=== PATIENT | female | born 1965 | race Caucasian/White ===

== ENCOUNTER 2016-12-16 10:21 | Inpatient (IN) | payer BC ==
[2016-12-16] VITALS (20 sets, daily range): BP systolic 104–147; BP diastolic 52–75; PULSE 70–101; RESP 6–18; Ht 160 cm; Wt 61.4 kg
[~2016-12-16] VITALS: Ht 160 cm; Wt 61.4 kg
[2016-12-16] MEDS ORDERED: BUPR300T36 PO (11:14)
[2016-12-16] MEDS ORDERED: BUPIVACAINE 0.5% ON-Q-PUMP 0 ML ONE (13:53)
[2016-12-16] MEDS ORDERED: GENTAMICIN 80 MG INJ ONE (13:56)
[2016-12-16] MEDS ORDERED: POLYMYXIN/BACITRACIN 1L IRRIG ONE (13:56)
[2016-12-16] MEDS ORDERED: BUPIVACAINE 0.5%/EPI (SDV) 10 ML INJ ONE (13:56)
[2016-12-16] MEDS ORDERED: EPINEPHrine 1 MG/ML 30 ML INJ ONE (13:57)
[2016-12-16] MEDS ORDERED: PROPOFOL 20 ML ONE (14:05)
[2016-12-16] MEDS ORDERED: MIDAZOLAM 1 MG/ML 2 ML INJ ONE (14:05)
[2016-12-16] MEDS ORDERED: LIDOCAINE 1% (MDV) 20 ML INJ ONE (14:05)
[2016-12-16] MEDS ORDERED: ROCURONIUM 50 MG INJ ONE (14:05)
[2016-12-16] MEDS: D5W-0.45 NACL + KCL 20 MEQ 1,000 ML IV SCH ×2 (15:39→23:39)
[2016-12-16] MEDS ORDERED: ACETAMINOPHEN 1000MG/100ML IV 100 ML IVPB PRN (16:00)
[2016-12-16] MEDS ORDERED: ONDANSETRON 4 MG INJ IV PRN ×2 (16:00→16:30)
--- NOTE | 2016-12-16 16:13 | HPN ---
Date/Time of Note Date/Time of Note DATE: 12/16/16 TIME: 16:13 Interval H&P Admission Note Pt. seen H&P reviewed: No system changes BOOM GRAHAM MD Dec 16, 2016 16:13
--- NOTE | 2016-12-16 16:27 | OPR ---
Date/Time of Note Date/Time of Note DATE: 12/16/16 TIME: 16:21 Operative Report Free Text/Dictation Plastic Surgery Operative Report Preoperative diagnosis: left breast CA Postoperative diagnosis: same Procedure: bilateral direct to implant breast reconstruction with alloderm Surgeon: mitch Chowdhury.:n/a Anesthesia:gen EBL:10cc IV fluids:per flow sheet Findings:n/a Complications:none Dispo:home Indications for procedure: 51 yo patient presents for bilateral direct to implant breast reconstruction. The risks, benefits, and alternatives of performing this procedure were discussed with the patient including the risks of bleeding, infection, wound healing problems, pain and tightness, need for removal. We discussed that if radiation is involved, it may alter the outcome. The risk of asymmetry and need for revision surgery were also discussed. The patient states that she understands these risks and would like to proceed with the procedure. All questions were answered, no guarantees were given with regards the outcome of this procedure. Description of procedure: The patient was brought to the operating room at [facility] where general anesthesia was induced, and the patient was prepped and draped in the usual sterile fashion. The mastectomy was performed by Dr. Prather and will be dictated separately. At the completion of that portion of the case, I scrubbed into the case, and irrigated the breasts with extensive antibiotic irrigation to remove all loose fat particles. Next, meticulous hemostasis was achieved with the bipolar cautery. An additional round of irrigation and hemostasis was carried out. Next, the right breast was inspected, and a piece of AlloDerm contour large was opened, rinsed in normal saline to remove the preservative, and was anchored in place medially, inferiorly, and laterally to re-create the lower border of the breast with 2-0 Vicryl suture. Next, the cautery was used to enter the lateral border of the subpectoral space, and then the pectoralis muscle was elevated from lateral to medial on its inferior surface, and was released inferiorly. The base width was then measured and was found to be approximately 13cm. Therefore, a 460cc sizer was opened, rinsed in antibiotic irrigation, and this was inserted into the right breast. This was too small and so a 560cc sizer was inserted, which gave the desired appearance. Next, the left breast was inspected, and a piece of AlloDerm contour large was opened, rinsed in normal saline to remove the preservative, and was anchored in place medially, inferiorly, and laterally to re-create the lower border of the breast with 2-0 Vicryl suture. Next, the cautery was used to enter the lateral border of the subpectoral space, and then the pectoralis muscle was elevated from lateral to medial on its inferior surface, and was released inferiorly. The base width was then measured and was found to be approximately 13cm. The sizer was inserted into the left breast, and this had the desired appearance. The breasts were inspected, and were found to be symmetric. Therefore, the sizer was removed, the breasts were irrigated with antibiotic irrigation, a final round of hemostasis was carried out, gloves were changed, and then an Allergan SCF-560cc SN [id number] implant was opened, rinsed in antibiotic irrigation, and was inserted into the left breast with minimal touch technique. The same size and style implant SN [id number] was opened, rinsed in antibiotic irrigation, and was inserted into the right breast with minimal touch technique. Finally, the pectoralis muscles were anchored to the AlloDerm with 2 -0 vicryl, and then an additional round of hemostasis and irrigation was carried out. 60 cc of a dilute exparel solution was injected around the breasts , and 2 x 15 Juan Carlos drains were inserted into each breast through stab incisions in the axilla and were secured in place with 2-0 nylon suture. A medial dog ear was de-epithelized on the right medial breast, and was plicated with 3-0 vicryl suture. The breasts were then closed with 3-0 Vicryl suture and 4-0 Monocryl suture and was dressed with Dermabond, Tegaderm, and an ABD. the patient tolerated this procedure well, there were no complications, she will remain tonight. BOOM GRAHAM MD Dec 16, 2016 16:27
[2016-12-16] MEDS ORDERED: BUPIVACAINE LIPOSOME/PF 266 MG/20 ML VIAL INFIL SCH (16:30)
[2016-12-16] MEDS ORDERED: HYDROCODONE/APAP (10/325) TAB PO PRN (16:30)
[2016-12-16] MEDS ORDERED: ACETAMINOPHEN 325 MG TAB PO PRN (16:30)
[2016-12-16] MEDS ORDERED: HYDROmorphONE 1 MG/ML SYG IV PRN (16:30)
[2016-12-16] MEDS ORDERED: POLYMYXIN/BACITRACIN 1L IRRIG IRR ONE (17:27)
[2016-12-16] MEDS ORDERED: CEFAZOLIN 1 GM INJ ONE (18:18)
[2016-12-16] MEDS ORDERED: DEXAMETHASONE 4 MG/ML 1 ML INJ ONE (18:48)
[2016-12-16] MEDS ORDERED: FAMOTIDINE 20 MG INJ ONE (18:48)
[2016-12-16] MEDS ORDERED: ONDANSETRON 4 MG INJ ONE (18:48)
[2016-12-16] MEDS ORDERED: SUGAMMADEX SODIUM 200 MG/2 ML VIAL IV ONE (20:13)
[2016-12-16] MEDS ORDERED: FENTAnyl 50 MCG/ML VIAL ONE (20:22)
[2016-12-16] MEDS ORDERED: DIPHENHYDRAMINE 50 MG INJ IV PRN (20:30)
[2016-12-16] MEDS ORDERED: LORAZEPAM 2 MG INJ IV PRN (20:30)
[2016-12-16] MEDS ORDERED: METOCLOPRAMIDE 10 MG INJ IV PRN (20:30)
[2016-12-16] MEDS ORDERED: MEPERIDINE 25 MG INJ IV PRN (20:30)
[2016-12-16] MEDS ORDERED: PROCHLORPERAZINE 10 MG INJ IV PRN (20:30)
[2016-12-16] MEDS ORDERED: HYDROmorphONE (0.2 MG/ML) 10ML SYG IV PRN (20:30)
[2016-12-16] MEDS: HYDROmorphONE (0.2 MG/ML) 10ML SYG IV PRN ×3 (20:52→21:24)
[2016-12-16] MEDS: CEFOTAXIME 1 GM/50 ML (PMX) 50 ML IVPB SCH (21:20)
[2016-12-16] MEDS: LACTATED RINGER'S 1,000 ML IV SCH (22:00)
[2016-12-16] MEDS: morphine 2 MG INJ IV PRN (22:42)
[2016-12-17] VITALS (8 sets, daily range): BP systolic 103–114; BP diastolic 54–59; PULSE 72–84; RESP 16–19
[2016-12-17] MEDS: CEFOTAXIME 1 GM/50 ML (PMX) 50 ML IVPB SCH ×2 (00:30→06:53)
[2016-12-17] MEDS: morphine 2 MG INJ IV PRN ×5 (00:35→08:36)
[2016-12-17] MEDS: LACTATED RINGER'S 1,000 ML IV SCH ×2 (02:14→04:23)
[2016-12-17] MEDS: D5W-0.45 NACL + KCL 20 MEQ 1,000 ML IV SCH (07:39)
--- NOTE | 2016-12-17 08:32 | OPR ---
DATE OF OPERATION: 12/16/2016 PREOPERATIVE DIAGNOSES: 1. Multicentric invasive cancer, left breast. 2. Need for left modified radical mastectomy and right prophylactic mastectomy. POSTOPERATIVE DIAGNOSES: 1. Multicentric invasive cancer, left breast. 2. Need for left modified radical mastectomy and right prophylactic mastectomy. OPERATION PERFORMED: 1. Left modified radical mastectomy with immediate reconstruction. 2. Right mastectomy with immediate reconstruction. ANESTHESIA: General. ANESTHESIOLOGIST: Panfilo Alonso MD SURGEON: Jon Prather MD PLASTIC SURGEON: Grabiel Chaudhry MD ASSISTANTS: 1. Ab Agosto MD 2. Jayme Escobar MD INDICATIONS FOR PROCEDURE: The patient is an unfortunate 51-year- old female who underwent screening mammography and was found to have suspicious spiculated lesion in the left breast and in a separate region a large span of calcifications which were also biopsied and were positive for ductal carcinoma. The spiculated lesion was biopsied and was positive for invasive cancer. Due to the fact that she had multicentric disease, the recommendation was for left modified radical mastectomy. The patient also requested right prophylactic mastectomy. She was seen preoperatively by plastic surgeon, Dr. Grabiel Chaudhry and she consented for the left modified radical mastectomy with immediate reconstruction and right mastectomy with immediate reconstruction. DESCRIPTION OF PROCEDURE: The patient brought to the operating theater and placed under general anesthesia. The breasts and axillary regions were prepped and draped bilaterally. The attention was first directed to the left side. Dr. Chaudhry had previously marked the elliptical incision, including the nipple- areolar complex. Dr. Prather carried out the incision with a 15 blade scalpel. Subcutaneous tissue was dissected with cautery. The skin edges were then elevated with [place] clamps and skin flaps were created using cautery, first superiorly to the clavicle then medially to the sternal border, inferiorly to the inframammary fold and laterally until the latissimus dorsi muscle was identified throughout its course. Mastectomy then took place using cautery from medial to lateral at the border of the pectoralis major muscle. The pectoralis minor muscle was identified. The clavipectoral fascia was incised with blunt dissection along the chest wall. The long thoracic nerve was identified and kept out of harm's way. More superiorly, the axillary vein and thoracodorsal neurovascular bundle was identified and kept out of harm's way. Level 1 lymph nodes were then meticulously dissected with the LigaSure device. Final connective tissue attachments to the latissimus dorsi muscle were transected with cautery. Specimen was oriented and sent for permanent pathologic analysis. Some additional enlarged level 1 to level 2 nodes were identified. They were resected separately and sent for pathologic analysis. The wound was irrigated. Minimal bleeding was controlled with cautery and the reconstruction portion of this of the left-sided operation was performed by Dr. Chaudhry and he will dictate that separately. Attention was then directed to the right-side. Again, Dr. Chaudhry had previously demarcated an elliptical incision, including the nipple-areolar complex, with marking pen. The incision was carried out with 15-blade scalpel. Subcutaneous tissue was dissected with cautery. The skin edges were elevated with [place] clamps and using cautery, skin flaps were developed first superiorly to the clavicle, then medially to the sternal border, inferiorly to the inframammary fold, and laterally until the latissimus dorsi muscle was identified throughout its course. Mastectomy then took place from [id number] using cautery. At the border of the pectoralis major muscle, the pectoralis minor muscle was identified. The tail of the breast was then resected with cautery. The specimen was removed, oriented, and sent for permanent pathologic analysis. At this point, Dr. Chaudhry entered the room and took over control of the operation, proceeded with immediate reconstruction of both the left and right sides and he will dictate that port portion separately. The estimated blood loss for Dr. Prather' portion of the operation was 150 mL. There were no complications. Dictated By: Jon Prather MD /fredrick/evelia /Document#: [id number] ANNY
[2016-12-17] MEDS ORDERED: HYDROCODONE/APAP (10/325) TAB PO PRN (10:00)
--- NOTE | 2016-12-17 10:51 | PN ---
Date/Time of Note Date/Time of Note DATE: 12/17/16 TIME: 10:49 Assessment/Plan Lines/Catheters IV Catheter Type (from [facility]): Saline Lock Assessment/Plan Assessment/Plan doing well discharge to home today nitropaste x1 to skin flaps today only follow up next week Subjective 24 Hr Interval Summary no acute events overnight Exam/Review of Systems Vital Signs Vitals Vital Signs Date Time Temp Pulse Resp B/P Pulse Ox O2 Delivery O2 Flow Rate FiO2 12/17/16 07:00 98.6 83 18 112/59 97 12/17/16 04:00 Room Air Intake and Output 12/16/16 12/16/16 12/17/16 15:00 23:00 07:00 Intake Total 1250 ml 1210 ml Output Total 225 ml 1175 ml Balance 1025 ml 35 ml Exam Free Text/Dictation GEneral: NAD breasts: no hematoma, flaps soft. drains intact. mild bruising on skin flaps BOOM GRAHAM MD Dec 17, 2016 10:51
--- NOTE | 2016-12-17 10:52 | DS ---
Date/Time of Note Date/Time of Note DATE: 12/17/16 TIME: 10:51 Discharge Summary Admission/Discharge Info Admit Date/Time Dec 16, 2016 at 10:21 Discharge Date/Time 12/07/16, 1100 Discharge Diagnosis left breast cancer Patient Condition: Good Hospital Course uncomplicated Home Meds Reported Medications Bupropion Hcl* (Bupropion XL*) 300 Mg Tab.sr.24h, 300 MG PO DAILY, TAB.SA 12/16/16 Primary Care Provider Not On Staff Doctor BOOM GRAHAM MD Dec 17, 2016 10:52
--- NOTE | 2016-12-17 10:54 | CONS ---
Date/Time of Note Date/Time of Note DATE: 12/17/16 TIME: 10:52 Assessment/Plan Assessment/Plan Chief Complaint/Hosp Course 1) breast cancer - s/p mastectomy Problems: Consultation Date/Type/Reason Admit Date/Time Dec 16, 2016 at 10:21 Date of Consultation: Dec 17, 2016 Reason for Consultation Medical Management postoperative Hx of Present Illness Patient with breast cancer is here for mastectomy. Patient tolerated the procedure fine and now is stable for discharge after the procedure. Constitutional: no complaints Eyes: no complaints ENT: no complaints Respiratory: no complaints Cardiovascular: no complaints Gastrointestinal: no complaints Genitourinary: no complaints Musculoskeletal: no complaints Skin: no complaints Neurologic: no complaints Social History Smoking Status: Never smoker Exam/Review of Systems Vital Signs Vitals Vital Signs Date Time Temp Pulse Resp B/P Pulse Ox O2 Delivery O2 Flow Rate FiO2 12/17/16 07:00 98.6 83 18 112/59 97 12/17/16 04:00 Room Air Intake and Output 12/16/16 12/16/16 12/17/16 15:00 23:00 07:00 Intake Total 1250 ml 1210 ml Output Total 225 ml 1175 ml Balance 1025 ml 35 ml Exam Constitutional: well developed Head: atraumatic, normocephalic Neck: supple Respiratory: clear to auscultation Cardiovascular: regular rate and rhythm Gastrointestinal: non-tender, soft Extremities: normal pulses Medications Medications Current Medications Ondansetron HCl 4 mg 4 mg Q6H PRN IV NAUSEA AND/OR VOMITING Last administered on 12/16/16 21:36; Admin Dose 4 MG; Start 12/16/16 at 16:00 Potassium Chloride/Dextrose/ Sod Cl (D5-1/2ns + KCl 20 Meq) 1,000 ml @ 125 mls/ hr Q8H IV ; Start 12/16/16 at 15:39 Morphine Sulfate 2 mg 2 mg Q1H PRN IV PAIN Last administered on 12/17/16 08:36 ; Admin Dose 2 MG; Start 12/16/16 at 16:00 Acetaminophen 100 ml @ 400 mls/hr Q6H PRN IVPB PAIN; Start 12/16/16 at 16:00 Cefotaxime Sodium (Claforan 1gm/50 ml (Pmx)) 50 ml @ 100 mls/hr Q8H IVPB Last administered on 12/17/16 06:53; Admin Dose 100 MLS/HR; Start 12/16/16 at 16:30 ; Stop 12/17/16 at 16:29 Hydromorphone HCl (Dilaudid) 0.5 mg Q6H PRN IV PAIN LEVEL 6-10; Start 12/16/16 at 16:30 Acetaminophen/ Hydrocodone Bitart ([place] (10/325)) 1 tab Q6H PRN PO PAIN; Start 12/16/16 at 16:30 Acetaminophen (Tylenol Tab) 650 mg Q6H PRN PO PAIN AND OR ELEVATED TEMP; Start 12/16/16 at 16:30 Ondansetron HCl 4 mg 4 mg Q6H PRN IV NAUSEA AND/OR VOMITING; Start 12/16/16 at 16:30 Lactated Ringer's (Lr) 1,000 ml @ 100 mls/hr Q10H IV Last administered on 12/17 04:23; Admin Dose 100 MLS/HR; Start 12/16/16 at 16:14 Acetaminophen/ Hydrocodone Bitart ([place] (10325)) 2 tab Q6H PRN PO PAIN LEVEL 7-10 Last administered on 12/17/16 10:08; Admin Dose 2 TAB; Start 12/17/16 at 10:00 Nitroglycerin (Nitroglycerin 2% Oint) 0.25 inch ONCE ONCE TD ; Start 12/17/16 at 11:00; Stop 12/17/16 at 11:01 ANGELIKA PEARSON Dec 17, 2016 10:54
[2016-12-17] MEDS ORDERED: NITROGLYCERIN 2% 1 GM OINT PKT TD ONE (11:00)
== END 2016-12-17 15:02 | disposition home or self-care (01) | DRG 581 ==
LOC: REC 10:21 → EDSTATUS 12:30 → MS1 21:50
PROVIDERS: ADMIT Surgery Surgical Oncology; ATTEND Surgery Surgical Oncology
PROC: 0HRV0JZ Replacement of Bilateral Breast with Synthetic Substitute, Open Approach (ICD-10-PCS; principal; 2016-12-16 13:00)
PROC: 0KBJ0ZZ Excision of Left Thorax Muscle, Open Approach (ICD-10-PCS; 2016-12-16 13:00)
DX: C50.912 Malignant neoplasm of unspecified site of left female breast (principal); E78.5 Hyperlipidemia, unspecified
CPT/HCPCS: 88307; C1762; C1789; J0171; J0690; J0698; J1100; J1170; J1580; J2250; J2270; J2405; J3010; J7120